=== PATIENT | male | born 1955 | race Hispanic/Latino ===

== ENCOUNTER 2017-06-29 13:59 | Inpatient (IN) | payer MEDICAID ==
[2017-06-29 16:17] LABS: BASO # 0.1 K/uL (0.0-0.2); BASO % 1.4 % (0.0-2.0); EOS # 0.1 K/uL (0.0-0.7); EOS % 0.9 % (0.0-4.0); HEMOGLOBIN 13.3 g/dL (12.0-18.0); LYMPH % 29.1 % (20.0-40.0); MEAN CELL VOLUME 93.8 fL (80.0-94.0); MEAN CORPUSCULAR HEMOGLOBIN 32.8 pg (27.0-31.0); MEAN PLATELET VOLUME 8.8 fL (7.2-11.7); MONO # 0.3 K/uL (0.0-0.8); NEUT # 4.5 K/uL (1.8-7.0); NEUT % 63.6 % (50.0-75.0); RBC 4.04 Mil/uL (4.40-5.90)
[2017-06-29 16:29] LABS: ALB/GLOB RATIO 1.1 (1.0-2.1); ALT/SGPT 11 U/L (21-72); AST/SGOT 22 U/L (17-59); BLOOD UREA NITROGEN 8 mg/dL (9-20); CALCIUM 9.1 mg/dl (8.6-10.4); GFR AFRICAN-AMERICAN > 60; GFR NON-AFRICAN AMERICAN > 60
[2017-06-29 17:46] LABS: SQUAMOUS EPITHIAL < 1 /hpf (0-5); URINE BACTERIA RARE (<OCC); URINE BILIRUBIN NEGATIVE (NEGATIVE); URINE BLOOD NEGATIVE (NEGATIVE); URINE CLARITY Hazy (Clear); URINE GLUCOSE (UA) NORMAL (Normal); URINE LEUKOCYTE ESTERASE NEG Leu/uL (Negative); URINE PROTEIN 1+ mg/dL (NEGATIVE)
[2017-06-29 17:54] LABS: URINE COLOR YELLOW (YELLOW)
[2017-06-29 18:03] LABS: BARBITURATES, UR NEGATIVE (NEGATIVE); BENZODIAZEPINES, UR NEGATIVE (NEGATIVE); PHENCYCLIDINE, UR NEGATIVE (NEGATIVE)
[2017-06-29 18:05] LABS: OPIATES, UR POSITIVE (NEGATIVE)
--- NOTE | 2017-06-29 18:42 | C.PDOC ---
History Of Present Illness 61 year old male presents to the ED requesting heroin detox. Patient states his last use was at 0100 today. Patient denies suicidal/homicidal ideation and has no other complaints at this time. Time Seen by Provider: 06/29/17 15:18 Chief Complaint (Nursing): Substance Abuse History Per: Patient History/Exam Limitations: no limitations Onset/Duration Of Symptoms: Hrs Current Symptoms Are (Timing): Still Present Modifying Factor(s): Narcotics (heroin ) Associated Symptoms: denies: Suicidal Thoughts, Suicidal Plan Additional History Per: Patient Past Medical History Reviewed: Historical Data, Nursing Documentation, Vital Signs Vital Signs: Last Vital Signs Temp 97.8 F 06/29/17 14:08 Pulse 89 06/29/17 14:08 Resp 18 06/29/17 14:08 BP 122/72 06/29/17 14:08 Pulse Ox 95 06/29/17 18:49 - Medical History PMH: Hepatitis (C), Seizures (one episode in 1997) Denies: Diabetes, HIV, HTN, Sexually Transmitted Disease Surgical History: No Surg Hx - [facility] DETOXIFICATION SERVICES FOR SUBSTANCE ABUSE TREATMENT (01/25/17) GROUP FENCE POST CUTTER FOR SUBSTANCE ABUSE TREATMENT, PSYCHOEDUCATION (01/25/17) GROUP PSYCHOTHERAPY (01/29/15) INDIV PSYCHOTHERAPY FOR SUBSTANCE ABUSE TREATMENT, SUPPORT (01/25/17) Family History: States: Unknown Family Hx - Social History Hx Alcohol Use: Yes Hx Substance Use: Yes - Immunization History Hx Tetanus Toxoid Vaccination: No Hx Influenza Vaccination: No Hx Pneumococcal Vaccination: No (5 YEARS AGO) Review Of Systems Psych: Positive for: Other (substance abuse ) Physical Exam - Physical Exam Appears: Non-toxic, No Acute Distress Skin: Normal Color, Warm, Dry Head: Atraumatic, Normacephalic Eye(s): bilateral: Normal Inspection Oral Mucosa: Moist Neck: Supple Chest: Symmetrical, No Deformity, No Tenderness Cardiovascular: Rhythm Regular, No Murmur Respiratory: Normal Breath Sounds, No Rales, No Rhonchi, No Wheezing Extremity: Normal ROM, Capillary Refill (less than 2 seconds ) Neurological/Psych: Oriented x3, Normal Speech, Normal Cognition ED Course And Treatment - Laboratory Results Result Diagrams: 06/29/17 16:10 06/29/17 16:10 O2 Sat by Pulse Oximetry: 95 (on RA) Pulse Ox Interpretation: Normal Medical Decision Making Medical Decision Making: Assessment: substance abuse Progress: Bloodwork and UA ordered and reviewed. Patient accepted for admission by Dr. Foy. Disposition Discussed With Dr.: Perla Foy Counseled Patient/Family Regarding: Studies Performed, Diagnosis - Disposition Disposition: HOSPITALIZED Disposition Time: 18:50 Condition: FAIR Forms: [facility] ([facility]) - Clinical Impression Clinical Impression: Opiate abuse, continuous - Scribe Statement The provider has reviewed the documentation as recorded by the Scribe (Jennifer Tirado) Provider Attestation: All medical record entries made by the Scribe were at my direction and personally dictated by me. I have reviewed the chart and agree that the record accurately reflects my personal performance of the history, physical exam, medical decision making, and the department course for this patient. I have also personally directed, reviewed, and agree with the discharge instructions and disposition.
--- NOTE | 2017-06-29 19:04 | PCM.BM ---
<Muna Eng - Last Filed: 06/29/17 19:01> Treatment Plan Problems - Problems identified on initial assessmt potiential for opiate withdrawal Date Initiated: 06/29/17 Time Initiated: 19:02 Assessment reference: NA Status: Active Treatment assets and liabiliti Patient Assests: adapts well, cooperative, ADL independent, negotiates basic needs Patient Liabilities: substance abuse, medical problems - Milieu Protocol Maintain good personal hygiene: daily Encourage regular showers, daily Remind patient to perform daily oral care, daily Assist patient to perform ADL's Maintain personal safety: every shift Educate patient to report safety concerns to staff, every shift Monitor environment for contraband/sharps Medication safety: Monitor for expected outcome, potential side effects: every shift, Assess barriers to learning: every shift, Assess readiness for medication education: every shift <Melly Ferrera - Last Filed: 06/30/17 13:33> Family Contact Family involvement: Famliy/SO not involved - Goals for Treatment Patient goals for treatment: COMPLETE DETOX AND REVIEW AFTERCARE OPTIONS WITH THE COUNSELING STAFF. Discharge/Continuing Care - Education Needs Education Needs: Patient Medication, Patient Diagnosis/Disease Process, Patient Coping Skills, Patient Anger Management skills, Patient Placement options, Patient Community resources - Discharge Discharge Criteria: No longer exhibiting s/s of withdrawal, Reduction of target symptoms Discharge to:: Home - Treatment Team Participation Patient/Family/SO Statement: 06/30/17 13:34 "I DON'T REALLY KNOW WHAT I WANNA DO YET..." Discussed with Family/SO: No Was Patient/Family/SO present at Treatment Team Meeting: Yes <Babatunde Bruce - Last Filed: 07/01/17 00:12> - Diagnosis (1) Opiate dependence Status: Acute Interventions: 07/01/17 00:12 * Assess 7x/week regarding severity of withdrawal * Educate regarding risks, benefits, side effects and alternatives of medications * Use Motivational Interviewing for abstinence * Use CBT for relapse prevention * Medication management for withdrawal symptoms * Encourage medication assisted treatment *
[2017-06-29] MEDS ORDERED: Albuterol HFA 90 mcg/actuation (8 g) INH PRN (21:00)
[2017-06-30] MEDS ORDERED: Benzocaine/Menthol (Cepacol) Lozenge PO PRN (00:40)
[2017-06-30] MEDS ORDERED: Albuterol 0.083% Inhal Sol (2.5 mg/3 mL) UD IH PRN (00:41)
[2017-06-30] MEDS ORDERED: Buprenorphine Hydrochloride 2 mg SL ONE ×2 (10:41→12:00)
[2017-06-30] MEDS: Aluminum Hydroxide/Magnesium Hydroxide Susp (30 mL) PO PRN (19:30)
--- NOTE | 2017-06-30 23:52 | PCM.PSYCH ---
Initial Psychiatric Evaluation - Initial Psychiatric Evaluation Type of Admission: Voluntary Legal Status: Capacity Chief Complaint (in patient's own words): "I have to stop this again" History of Present Illness and Precipitating Events: Pt is seen, chart reviewed, case discussed. He is known from a previous admission. He is a 61 WM, from his , with 2 adult children who live out of state and a few grandchildren. 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 He lives in [place], alone. He uses on 7-10 bags of heroin per day intranasally but used to shoot. First use was at age 18. Longest period of sobriety was 5 years in the mid 80s. Patient has been to rehab 3 times prior. Patient smokes 2-3 packs/day, MJ sometimes. Denies alcohol use and other drugs Past Psych History: depression PMHx: asthma Family history has no substance abuse or psych issues. Current Medications: Active Medications Generic Name Dose Route Start Last Admin Trade Name Freq PRN Reason Stop Dose Admin Al Hydrox/Mg Hydrox/Simethicone 30 ml 06/30/17 00:40 06/30/17 19:30 Maalox 30 Ml PO 30 ml TID PRN Administration Indigestion / Heartburn Albuterol 1 puff 06/29/17 21:00 Ventolin Hfa 90 Mcg/Actuation (8 G) INH RQ6 PRN dypsnea Albuterol Sulfate 2.5 mg 06/30/17 00:41 Albuterol 0.083% Inhal Sheree (2.5 Mg/3 Ml) Ud IH Q4H PRN Shortness of Breath Amitriptyline HCl 100 mg 06/29/17 22:00 06/30/17 21:04 Elavil PO 100 mg HS TIFFANIE Administration Benzocaine/Menthol 1 michael 06/30/17 00:40 Cepacol Sore Throat PO QID PRN Sore Throat Clonidine HCl 0.1 mg 06/30/17 00:40 06/30/17 08:39 Catapres PO 0.1 mg Q8 PRN Administration COWS Score More or Equal to 5 Hydroxyzine HCl 25 mg 06/30/17 00:41 Atarax PO Q6 PRN Anxiety Loperamide HCl 2 mg 06/30/17 00:40 Imodium PO Q8 PRN Diarrhea Ondansetron HCl 4 mg 06/30/17 00:40 Zofran Tab PO Q8 PRN Nausea/Vomiting Pseudoephedrine HCl 60 mg 06/30/17 00:40 Sudafed Tab PO QID PRN Nasal/Sinus Congestion Past Psychiatric History - Past Psychiatric History Previous Treatment History: None Pertinent Medical Hx (Current Medical&Sleep Prob, Allergies): Allergies Allergy/AdvReac Type Severity Reaction Status Date / Time shellfish derived Allergy ANAPHYLAXIS Verified 06/29/17 14:18 iv Allergy RASH Uncoded 06/29/17 14:18 IV CONTRAST Allergy Uncoded 06/29/17 14:18 Albuterol 0.083% [Albuterol Sulfate 3 Ml] 3 ml IH Q4H PRN 01/29/15 Amitriptyline Hydrochloride [Elavil] 100 mg PO HS 01/29/15 Albuterol HFA [Ventolin HFA 90 mcg/actuation (8 g)] 1 puff INH RQ4 PRN #1 inhaler 01/28/17 Review of Systems - Neurological Neurological: UNREMARKABLE - Psychiatric Psychiatric: Abnormal Sleep Pattern, Anxiety, Difficulty Concentrating, Irritability. absent: Homicidal Ideation, Suicidal Ideation Mental Status Examination - Personal Presentation Personal Presentation: Looks stated age - Affect Affect: Constricted - Motor Activity Motor Activity: Calm - Reliability in Providing Information Reliability in Providing Information: Good - Speech Speech: Organized - Mood Mood: Anxious - Formal Thought Process Formal Thought Process: No Impairment - Cognitive Functions Orientation: Person, Place, Situation, Time Sensorium: Alert Attention/Concentration: Attentive Estimate of Intelligence: Average Judgement: Intact, as evidence by: Insight regarding need for hospitalization Memory: Recent intact, as evidence by: Ability to recall events of the day, Remote intact, as evidenced by: Abilit to recall sig. life events - Risk Risk: Withdrawal, Diminished functioning - Strength & Assets Inventory Strength & Assets Inventory: Cooperative - Limitations Limitations: Other DSM 5 DX - DSM 5 DSM 5 Diagnosis: Opioid withdrawal Opioid use d/o - severe Tobacco use d/o - severe Depressive d/o - unspecified - Recommended/Plan of Treatment Treatment Recommendations and Plan of Treatment: Methadone detox As needed medications Continue Elavil as he has been on it for a long time with good effect, get EKG Gabapentin for augmentation All risks, benefits and alternatives of medications, including no medications, discussed and the patient understood and agreed. Attend groups and activities Supportive therapy and psychoeducation [place] for abstinence CBT for relapse prevention Encourage MAT Refer to rehab or IOP Attend self-help groups as well [place] for smoking cessation and patch if needed 34 min Projected ELOS: 4-5 days - Smoking Cessation Smoking Cessation Initiated: Yes
[2017-07-01] MEDS: Buprenorphine Hydrochloride 2 mg SL SCH (09:37)
--- NOTE | 2017-07-01 10:31 | PCM.PYCHPN ---
Psychiatric Progress Note - Psychiatric Progress Note Patient seen today, length of contact: 17 min Patient Chief Complaint: "I still have withdrawal symptoms. " Problems Identified/Issues Discussed: The pt is seen, chart reviewed, case discussed with staff. The pt is compliant with medications and reports no side-effects. Patient states he is still feeling sick. He states he slept okay. Symptoms are improving but needs more time to stabilize. After care discussed, support and psychoeducation given. Mental Status Examination - Cognitive Function Orientation: Person, Place, Situation, Time Memory: Intact Attention: WNL Concentration: WNL Association: WNL Fund of Knowledge: WNL - Mood Mood: Anxious - Affect Affect: Broad - Speech Speech: Appropriate - Formal Thought Process Formal Thought Process: No Impairment - Suicidal Ideation Suicidal Ideation: No - Homicidal Ideation Homicidal Ideation: No Goal/Treatment Plan - Goal/Treatment Plan Need for Continued Stay: Severe depression anxiety, Severe functional impairment Progress Toward Problem(s) and Goals/Treatment Plan: Opioid withdrawal Opioid use d/o - severe Tobacco use d/o - severe Depressive d/o - unspecified Methadone detox As needed medications Continue Elavil as he has been on it for a long time with good effect, EKG Normal Gabapentin for augmentation All risks, benefits and alternatives of medications, including no medications, discussed and the patient understood and agreed. Attend groups and activities Supportive therapy and psychoeducation [place] for abstinence CBT for relapse prevention Encourage MAT Refer to rehab or IOP Attend self-help groups as well [place] for smoking cessation and patch if needed
[2017-07-02] MEDS: Buprenorphine Hydrochloride 2 mg SL SCH (10:03)
--- NOTE | 2017-07-02 14:44 | PCM.PYCHPN ---
Psychiatric Progress Note - Psychiatric Progress Note Patient seen today, length of contact: 17 min Patient Chief Complaint: I am improving. Problems Identified/Issues Discussed: The pt is seen, chart reviewed, case discussed with staff. Patient is agitated today about not being able to use his own razor. Patient states he slept okay last night. Support given, CBT and CO used briefly No new symptoms reported, improving slowly and needs more time No SEs from medications, risks discussed. Medication Change: Yes (detox changes daily) Mental Status Examination - Cognitive Function Orientation: Person, Place, Situation, Time Memory: Intact Attention: WNL Concentration: WNL Association: WNL Fund of Knowledge: WNL - Mood Mood: Anxious - Affect Affect: Broad - Speech Speech: Appropriate - Formal Thought Process Formal Thought Process: No Impairment - Suicidal Ideation Suicidal Ideation: No - Homicidal Ideation Homicidal Ideation: No Goal/Treatment Plan - Goal/Treatment Plan Need for Continued Stay: Severe depression anxiety, Severe functional impairment Progress Toward Problem(s) and Goals/Treatment Plan: Methadone detox As needed medications Continue Elavil as he has been on it for a long time with good effect, get EKG Gabapentin for augmentation All risks, benefits and alternatives of medications, including no medications, discussed and the patient understood and agreed. Attend groups and activities Supportive therapy and psychoeducation [place] for abstinence CBT for relapse prevention Encourage MAT Refer to rehab or IOP Attend self-help groups as well [place] for smoking cessation and patch if needed
--- NOTE | 2017-07-02 15:42 | RAD ---
HISTORY: rehab clearance COMPARISON: No prior. TECHNIQUE: Chest PA and lateral FINDINGS: LUNGS: Mild pulmonary hyperinflation consistent with emphysema. No infiltrate. PLEURA: No significant pleural effusion identified. No pneumothorax apparent. CARDIOVASCULAR: Normal. OSSEOUS STRUCTURES: No significant abnormalities. VISUALIZED UPPER ABDOMEN: Normal. OTHER FINDINGS: None. IMPRESSION: Probable emphysema. No pulmonary infiltrate.
--- NOTE | 2017-07-02 22:39 | CARD ---
APPROVED REPORT EKG Measurement Heart [id number] <Conclusion> Normal sinus rhythm Normal ECG
[2017-07-03] MEDS: Buprenorphine Hydrochloride 2 mg SL SCH (11:03)
[2017-07-03] MEDS: Aluminum Hydroxide/Magnesium Hydroxide Susp (30 mL) PO PRN ×2 (14:13→20:58)
--- NOTE | 2017-07-03 14:21 | PCM.PYCHPN ---
Psychiatric Progress Note - Psychiatric Progress Note Patient seen today, length of contact: 15 minutes Patient Chief Complaint: I'm feeling better. Can I be discharge Home today. Problems Identified/Issues Discussed: Patient seen, chart reviewed, case discussed with the staff. Issues related to illness and treatment were discussed with the patient and staff. Reported compliant with treatment with no adverse affects. Patient reported feeling better. Patient was requesting for discharge today. Education provided about detox and also the benefits of leaving the unit after completion of detox. Patient agreed to stay. Aftercare discussed with the patient. At the time of evaluation, patient was awake alert oriented 3, no delusions, no auditory visual hallucinations, no suicidal ideations or homicidal ideations. Medical Problems: Asthma Diagnostic Results: Reviewed DSM 5 Symptoms Update: Some improvement with treatment Medication Change: No Medical Record Reviewed: Yes Mental Status Examination - Cognitive Function Orientation: Person, Place, Situation, Time Memory: Intact Attention: WNL Concentration: WNL Association: WN Fund of Knowledge: [facility] Decription of patient's judgement and insights: Fair - Mood Mood: Neutral - Affect Affect: Other (Appropriate) - Speech Speech: Appropriate - Formal Thought Process Formal Thought Process: No Impairment Psychotic Thoughts and Behaviors: None - Suicidal Ideation Suicidal Ideation: No - Homicidal Ideation Homicidal Ideation: No Goal/Treatment Plan - Goal/Treatment Plan Need for Continued Stay: Remain at risks for inpatient hospitalization, Discharge may exacerbated symptoms, Severe functional impairment Progress Toward Problem(s) and Goals/Treatment Plan: Patient education Supportive therapy CBT for relapse prevention [place] for abstinence Continue treatment as before. Estimated Date of D/C: 06/28/17 - Smoking Cessation Smoking Cessation Initiated: No
[2017-07-03] MEDS ORDERED: Magnesium Hydroxide Susp 30 ml UD PO ONE ×2 (20:00→21:15)
[2017-07-04] MEDS: Buprenorphine Hydrochloride 2 mg SL SCH (09:30)
--- NOTE | 2017-07-04 13:03 | PCM.PYCHPN ---
Psychiatric Progress Note - Psychiatric Progress Note Patient seen today, length of contact: 15 minutes Patient Chief Complaint: I'm feeling better. Problems Identified/Issues Discussed: Patient seen, chart reviewed, case discussed with the staff. Issues related to illness and treatment were discussed with the patient and staff. Reported compliant with treatment with no adverse affects. Patient reported feeling much better. Calm and cooperative with good eye contact. Mood reported as good. Affect appropriate. Aftercare discussed with the patient. At the time of evaluation, patient was awake alert oriented 3, no delusions, no auditory visual hallucinations, no suicidal ideations or homicidal ideations. Medical Problems: Asthma Diagnostic Results: Reviewed DSM 5 Symptoms Update: Improving with treatment Medication Change: No Medical Record Reviewed: Yes Mental Status Examination - Cognitive Function Orientation: Person, Place, Situation, Time Memory: Intact Attention: WNL Concentration: WNL Association: WNL Fund of Knowledge: WN Decription of patient's judgement and insights: Fair - Mood Mood: Neutral - Affect Affect: Other (Appropriate) - Speech Speech: Appropriate - Formal Thought Process Formal Thought Process: No Impairment Psychotic Thoughts and Behaviors: None - Suicidal Ideation Suicidal Ideation: No - Homicidal Ideation Homicidal Ideation: No Goal/Treatment Plan - Goal/Treatment Plan Need for Continued Stay: Remain at risks for inpatient hospitalization, Discharge may exacerbated symptoms, Severe functional impairment Progress Toward Problem(s) and Goals/Treatment Plan: Patient education Supportive therapy CBT for relapse prevention [place] for abstinence Continue treatment as before. Estimated Date of D/C: 06/28/17 - Smoking Cessation Smoking Cessation Initiated: No
[2017-07-04] MEDS: Aluminum Hydroxide/Magnesium Hydroxide Susp (30 mL) PO PRN (19:21)
[2017-07-05 08:36] VITALS: BP 139/89; PULSE 80; RESP 20; TEMP 99; O2SAT 99
--- NOTE | 2017-07-05 08:49 | PCM.PYCHDC ---
Discharge Summary - Discharge Note Consultations:: List each consultation separately and include: 1. Reason for request. 2. Findings. 3. Follow-up Summary of Hospital Course include:: 1. Description of specific treatment plan utilized for patients during their course of treatmen. 2. Summarize the time- course for resolution of acute symptoms and/or regressed behaviors. 3. Describe issues identified and worked on during hospitalization. 4. Describe medication utilized. 5. Describe medical problems identified and treated. 6. Reassessment of suicide risk Summary of Hospital Course: Pt is seen, chart reviewed, case discussed. He is known from a previous admission. He is a 61 WM, from his , with 2 adult children who live out of state and a few grandchildren. 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 He lives in [place], alone. He uses on 7-10 bags of heroin per day intranasally but used to shoot. First use was at age 18. Longest period of sobriety was 5 years in the mid 80's. Patient has been to rehab 3 times prior. Patient smokes 2-3 packs/day, MJ sometimes. Denies alcohol use and other drugs Past Psych History: depression PMHx: asthma Family history has no substance abuse or psych issues. [facility]. - Diagnosis (1) Opiate dependence Current Visit: No Status: Acute - Final Diagnosis (DSM 5) Condition upon Discharge: FAIR Disposition: HOME/ ROUTINE Follow-up Treatment Plan: Methadone detox As needed medications Continue Elavil as he has been on it for a long time with good effect, get EKG Gabapentin for augmentation All risks, benefits and alternatives of medications, including no medications, discussed and the patient understood and agreed. Attend groups and activities Supportive therapy and psychoeducation [place] for abstinence CBT for relapse prevention Encourage MAT Refer to rehab or IOP Attend self-help groups as well [place] for smoking cessation and patch if needed Prescriptions/Medication Reconciliation: Albuterol 0.083% [Albuterol 0.083% Inhal Sheree (2.5 mg/3 ml) UD] 2.5 mg IH Q4H PRN #1 neb PRN Reason: Shortness Of Breath Amitriptyline [Elavil] 100 mg PO HS #30 tab
== END 2017-07-05 10:15 | disposition home or self-care (01) | DRG 744 ==
LOC: C.ER 13:59 → C.7D 18:46
PROVIDERS: ADMIT Psychiatry & Neurology Psychiatry; ATTEND Psychiatry & Neurology Psychiatry
PROC: HZ81ZZZ Medication Management for Substance Abuse Treatment, Methadone Maintenance (ICD-10-PCS; principal; 2017-06-29)
PROC: HZ2ZZZZ Detoxification Services for Substance Abuse Treatment (ICD-10-PCS; 2017-06-29)
PROC: HZ32ZZZ Individual Counseling for Substance Abuse Treatment, Cognitive-Behavioral (ICD-10-PCS; 2017-06-29)
PROC: HZ36ZZZ Individual Counseling for Substance Abuse Treatment, Psychoeducation (ICD-10-PCS; 2017-06-29)
DX: F11.23 Opioid dependence with withdrawal (principal); B19.20 Unspecified viral hepatitis C without hepatic coma; F17.200 Nicotine dependence, unspecified, uncomplicated; F32.9 Major depressive disorder, single episode, unspecified; J45.909 Unspecified asthma, uncomplicated